=== PATIENT | male | born 1945 | race Two or more races ===

== ENCOUNTER 2024-07-28 11:14 | Outpatient (RCR) | payer MEDICARE, SELFPAY | END 2024-07-28 23:59 | disposition home or self-care (01) | LOC: RPT 11:14 | PROVIDERS: ATTENDING PHYSICIAN Student in an Organized Health Care Education/Training Program; FAMILY PHYSICIAN Family Medicine | DX: M54.16 Radiculopathy, lumbar region (principal); M48.062 Spinal stenosis, lumbar region with neurogenic claudication; Z73.6 Limitation of activities due to disability; R26.2 Difficulty in walking, not elsewhere classified; R26.89 Other abnormalities of gait and mobility | CPT/HCPCS: 97010; 97110; 97162 ==

== ENCOUNTER 2024-08-25 08:57 | Outpatient (RCR) | payer MEDICARE, SELFPAY | END 2024-08-25 23:59 | disposition home or self-care (01) | LOC: RPT 08:57 | PROVIDERS: ATTENDING PHYSICIAN Student in an Organized Health Care Education/Training Program; FAMILY PHYSICIAN Family Medicine | DX: M54.16 Radiculopathy, lumbar region (principal); M48.062 Spinal stenosis, lumbar region with neurogenic claudication; Z73.6 Limitation of activities due to disability; R26.2 Difficulty in walking, not elsewhere classified; R26.89 Other abnormalities of gait and mobility | CPT/HCPCS: 97010; 97110; 97112; 97116 ==

== ENCOUNTER → 2024-08-25 13:23 | Outpatient (REF) | payer MEDICARE, SELFPAY | LOC: RAD 13:23 | PROVIDERS: ATTENDING PHYSICIAN Surgery Vascular Surgery; FAMILY PHYSICIAN Family Medicine | DX: I73.9 Peripheral vascular disease, unspecified (principal) | CPT/HCPCS: 93970 ==

== ENCOUNTER 2024-10-06 09:10 | Outpatient (RCR) | payer MEDICARE, SELFPAY | END 2024-10-06 23:59 | disposition home or self-care (01) | LOC: RPT 09:10 | PROVIDERS: ATTENDING PHYSICIAN Student in an Organized Health Care Education/Training Program; FAMILY PHYSICIAN Family Medicine | DX: M54.16 Radiculopathy, lumbar region (principal); M48.062 Spinal stenosis, lumbar region with neurogenic claudication; Z73.6 Limitation of activities due to disability; R26.2 Difficulty in walking, not elsewhere classified; R26.89 Other abnormalities of gait and mobility | CPT/HCPCS: 97010; 97110 ==

== ENCOUNTER 2024-11-03 10:01 | Outpatient (RCR) | payer MEDICARE, SELFPAY | END 2024-11-03 23:59 | disposition home or self-care (01) | LOC: RPT 10:01 | PROVIDERS: ATTENDING PHYSICIAN Student in an Organized Health Care Education/Training Program; FAMILY PHYSICIAN Family Medicine | DX: M54.16 Radiculopathy, lumbar region (principal); M48.062 Spinal stenosis, lumbar region with neurogenic claudication; Z73.6 Limitation of activities due to disability; R26.2 Difficulty in walking, not elsewhere classified; R26.89 Other abnormalities of gait and mobility | CPT/HCPCS: 97110; 97112 ==

== ENCOUNTER 2024-11-16 06:09 | Day surgery (SDC) | payer MEDICARE, SELFPAY ==
[2024-11-10 09:53] VITALS: BMI 38.7
[2024-11-10 10:00] LABS: % Basophils 0.6 % (0-2); % Immature Granulocytes 0.6 % (0-0.5); % Lymphocytes 15.5 % (20.5-51.1); % Monocytes 14.1 % (1.7-9.3); % Neutrophils 65.2 % (42.2-75.2); Absolute Eosinophils 0.2 10^3/uL (0-0.7); Absolute Lymphocytes 0.8 10^3/uL (1.2-3.4); Absolute Monocytes 0.7 10^3/uL (0.1-0.6); Absolute Neutrophils 3.3 10^3/uL (1.4-6.5); Hematocrit 39.6 % (39.0-52.0); Hemoglobin 13.1 g/dL (13.0-18.0); Mean Corp Hgb Conc. 33.1 g/dL (33.0-37.0); Mean Corpuscular Hgb 32.1 pg (27.0-31.0); Mean Corpuscular Volume 97.1 fL (80.0-94.0); Mean Platelet Volume 9.7 fL (7.4-10.4); Nucleated Red Blood Cells % 0 % (-); Platelet Count 186 10^3/uL (130-400); Red Blood Cell Count 4.08 10^6/uL (4.70-6.10); Red Cell Dist. Width 12.5 % (11.5-14.5)
[2024-11-10 10:11] LABS: APTT 32.5 Sec (23.4-35.0); INR 1.05; PT 14.2 Sec (11.4-14.6)
[2024-11-10 10:46] LABS: Blood Urea Nitrogen 22 mg/dl (9-20); Calcium 9.4 mg/dl (8.4-10.2); Carbon Dioxide 30 mmol/L (22-30); Chloride 106 mmol/L (98-107); Estimated Creatinine Clearance 67 ml/min; Glucose 107 mg/dl (70-99); Potassium 4.8 mmol/L (3.5-5.1); Sodium 139 mmol/L (135-145); eGFR > 60.00
[2024-11-16] VITALS (13 sets, daily range): BP systolic 120–158; BP diastolic 53–76; BMI 33.7
[2024-11-16] MEDS: PERIDEX 0.12% ORAL RINSE 15 ML PO (07:00)
[2024-11-16] MEDS: BACTROBAN NASAL 1 GRAM NASAL (07:01)
[2024-11-16] MEDS: NSS 500 IV (07:22)
--- NOTE | 2024-11-16 07:34 | HP.FOC2 ---
Focused History & Physical
Chief Complaint
HPI:
Chief Complaint: Bilateral lower extremity edema with hyperpigmentation of bilateral shins
HPI / Indication for Planned Procedure: This is an 79-year-old male with significant past medical history of hypertension, lumbar stenosis, peripheral arterial disease, edema, aortic valve stenosis, high cholesterol, heart murmur, and venous
insufficiency who presents to [facility] for scheduled right lower extremity saphenous vein ablation for worsening lower extremity edema that has increased over the past 24 months. He denies recent hospitalization, trauma, or illness.
Denies nausea, vomiting, fever, chills, and cough.
Relevant Past Medical History: Hypertension and Other (Lumbar stenosis, lower extremity edema, venous insufficiency, aortic valve stenosis, heart murmur, high cholesterol)
Relevant Social History: Negative (Former tobacco smoker, quit greater than 10 years ago)
Review of Systems
Review of Pertinent Systems: All Systems Negative
Medication
See Medication form for detailed medications: Yes
Medication List (including Herbals & OTC):
[place] 3 1,000 mg PO DAILY 11/08/24
aspirin 81 mg tablet,delayed release 81 mg PO DAILY 11/08/24
atorvastatin 10 mg tablet 10 mg PO HS 11/08/24
coenzyme Q10 100 mg capsule (Co Q-10) 100 mg PO DAILY 11/08/24
collagen 1 dose PO DAILY 11/08/24
glucosamine-chondroitin 250 mg-200 mg tablet 2 tab PO BID 11/08/24
ketoconazole 2 % shampoo 1 applic topical ONCE dandruff 11/08/24
lorazepam 0.5 mg tablet 0.5 mg PO DAILY PRN anxiety 11/08/24
losartan 25 mg tablet (Cozaar) 25 mg PO DAILY 11/08/24
tadalafil 20 mg tablet (Cialis) 20 mg PO DAILY PRN ED 11/08/24
tamsulosin 0.4 mg capsule 0.4 mg PO HS 11/08/24
trazodone 100 mg tablet 100 mg PO HS 11/08/24
triamcinolone acetonide 0.1 % topical cream 1 applic topical DAILY rash on legs 11/08/24
turmeric root extract 500 mg tablet 2,000 mg PO DAILY 11/08/24
Medications Reviewed: Yes
Allergies and Reactions
Patient has Allergies: Yes
Noted Allergies and Reactions:
Allergy/AdvReac Type Severity Reaction Status Date / Time
MELINDA Inhibitors Allergy Unknown Verified 11/16/24 07:16
erythromycin base Allergy Throat Verified 11/08/24 14:01
closes
Penicillins Allergy Unknown Verified 11/08/24 14:01
Sulfa (Sulfonamide Allergy palpitation Verified 11/08/24 13:50
Antibiotics) s
Pertinent Physical Exam
All Other Systems: Negative
Head/Neck: Normal
Lungs: Normal (Bilateral lungs clear to auscultation)
Heart: Other (Regular rate and rhythm with murmur)
Abdomen: Normal (Nontender, nondistended)
Extremities: Other (Bilateral radial pulse +2, bilateral lower extremities with +1 edema, unable to palpate distal bilateral lower extremities but feet warm)
Neurological: Normal
Diagnosis / Assessment
Assessment: 79-year-old male with bilateral lower extremity venous insufficiency
Plan / Procedure
Plan: Will proceed with scheduled right lower extremity greater saphenous vein ablation with Dr. Cy Kearney III
Anesthesia/Sedation to be done by Anesthesia Provider: Yes
--- NOTE | 2024-11-16 07:40 | W.SUR.PREOP ---
Pre-Operative Surgical Note
-
I have examined this patient prior to the performance of the scheduled procedure.
The patient's condition is unchanged from the time of the current History and
Physical and the patient is able to undergo the scheduled procedure.
--- NOTE | 2024-11-16 09:00 | OR.RPT ---
Operative Report
Operative Report
Date of Operation: 11/16/2024
Pre Op Diagnosis: Symptomatic venous insufficiency, right lower extremity
Post Op Diagnosis: Symptomatic venous insufficiency, right lower extremity
Procedure: Radiofrequency endovenous ablation of right great saphenous vein (ankle puncture site)
Surgeon: Cy Kearney III, MD
Small Animal Veterinarian: Bill Linder MD, PGY5
Anesthesia: Sedation/local
Complications: None
Estimated Blood Loss: Minimal
History and Indications for Procedure: 79-year-old male with symptomatic venous insufficiency of the right lower extremity
Procedure in Detail: Truong Edwards was correctly identified and placed supine on the operating table. After adequate induction of anesthesia the right leg was frog-legged and the table placed into a reverse Trendelenburg position. The right leg
was prepped and draped in the usual sterile fashion. A timeout procedure was performed with the nursing and anesthesia staff confirming the patient's identity as well as the nature and laterality of the procedure.
The right great saphenous vein was identified using ultrasound guidance. The vein was visualized from the saphenofemoral junction to the ankle. An appropriate site for access was identified at the ankle, just below the area of skin discoloration
and lipodermatosclerosis. Local anesthesia was infiltrated into the proposed puncture site. The right great saphenous vein was accessed with a micropuncture needle under ultrasound guidance and the 7 [place] sheath was placed. The great saphenous
vein was somewhat tortuous and the catheter could not be advanced on its own easily. Therefore the catheter was removed. A V18 wire was then advanced through the sheath and under direct radiographic guidance navigated to the saphenofemoral
junction and into the common femoral vein. Then, over the 0.018 wire and under direct ultrasound guidance the 100 cm length /7 cm tip radiofrequency ablation catheter was advanced towards the saphenofemoral junction. Using a real-time direct
ultrasound measurement the tip of the catheter was positioned 2.7 cm from the saphenofemoral junction. The position of the catheter was then externally marked using the white plastic doughnut on the catheter at the sheath exit site. Using
ultrasound guidance Tumescent solution was then infiltrated circumferentially around the right great saphenous vein from the sheath insertion site to the tip of the catheter near the saphenofemoral junction. At this point the table was flattened
out. The right great saphenous vein was then ablated using 2 treatment cycles at each segment. Once completed the sheath and catheter were removed. Direct manual pressure was held on the puncture site and hemostasis was achieved. A sterile
dressing was applied.
The patient's leg was cleaned and then wrapped with an Alec wrap from the toes to the proximal thigh. The patient tolerated the procedure well was taken to the recovery room in good condition.
Attestation: I was present and responsible for the entire procedure
Signed:
Cy Kearney III, MD
Vascular Surgery
[facility]
[2024-11-16] MEDS: TORADOL 15 MG IV (09:28)
== END 2024-11-16 11:35 | disposition home or self-care (01) ==
LOC: CATH 06:09
PROVIDERS: ATTENDING PHYSICIAN Surgery Vascular Surgery; OTHER PHYSICIAN Internal Medicine Cardiovascular Disease; PRIMARYCARE PHYSICIAN Family Medicine
DX: I87.2 Venous insufficiency (chronic) (peripheral) (principal); R60.0 Localized edema; M48.061 Spinal stenosis, lumbar region without neurogenic claudication; Z79.82 Long term (current) use of aspirin; Z79.899 Other long term (current) drug therapy; E78.00 Pure hypercholesterolemia, unspecified; I10 Essential (primary) hypertension; I35.0 Nonrheumatic aortic (valve) stenosis; I45.10 Unspecified right bundle-branch block; Z01.810 Encounter for preprocedural cardiovascular examination; Z87.891 Personal history of nicotine dependence; Z88.0 Allergy status to penicillin; Z88.1 Allergy status to other antibiotic agents; Z88.2 Allergy status to sulfonamides
CPT/HCPCS: 36475; 36415; 80048; 85025; 85610; 85730; 87070; 93005; C1769

== ENCOUNTER → 2024-11-18 14:04 | Outpatient (REF) | payer MEDICARE, SELFPAY | LOC: RAD 14:04 | PROVIDERS: ATTENDING PHYSICIAN Surgery Vascular Surgery; FAMILY PHYSICIAN Family Medicine | DX: I87.2 Venous insufficiency (chronic) (peripheral) (principal) | CPT/HCPCS: 93971 ==

== ENCOUNTER 2024-12-01 08:05 | Outpatient (RCR) | payer MEDICARE, SELFPAY | END 2024-12-01 23:59 | disposition home or self-care (01) | LOC: RPT 08:05 | PROVIDERS: ATTENDING PHYSICIAN Student in an Organized Health Care Education/Training Program; FAMILY PHYSICIAN Family Medicine | DX: M54.16 Radiculopathy, lumbar region (principal); M48.062 Spinal stenosis, lumbar region with neurogenic claudication; Z73.6 Limitation of activities due to disability; Z98.890 Other specified postprocedural states; R26.2 Difficulty in walking, not elsewhere classified; R26.89 Other abnormalities of gait and mobility | CPT/HCPCS: 97010; 97110 ==

== ENCOUNTER 2025-06-07 06:13 | Day surgery (SDC) | payer MEDICARE, SELFPAY ==
[2025-06-07] VITALS (7 sets, daily range): BP systolic 109–126; BP diastolic 58–86; BMI 37.9
[2025-06-07] MEDS: NSS 500 IV (06:57)
[2025-06-07] MEDS: BACTROBAN NASAL 1 GRAM NASAL (06:57)
[2025-06-07 07:07] LABS: Hematocrit 41.0 % (39.0-52.0); Hemoglobin 13.7 g/dL (13.0-18.0); Mean Corp Hgb Conc. 33.4 g/dL (33.0-37.0); Mean Corpuscular Volume 97.4 fL (80.0-94.0); Platelet Count 172 10^3/uL (130-400); Red Cell Dist. Width 13.2 % (11.5-14.5)
[2025-06-07 07:20] LABS: Blood Urea Nitrogen 24 mg/dl (9-20); Calcium 9.2 mg/dl (8.4-10.2); Carbon Dioxide 26 mmol/L (22-30); Chloride 107 mmol/L (98-107); Estimated Creatinine Clearance 58 ml/min; Glucose 101 mg/dl (70-99); Potassium 4.6 mmol/L (3.5-5.1); Sodium 137 mmol/L (135-145); eGFR 55.53
--- NOTE | 2025-06-07 07:20 | HP.FOC2 ---
Focused History & Physical
Chief Complaint
HPI:
Chief Complaint: Venous insufficiency
HPI / Indication for Planned Procedure: 79-year-old male with past medical history significant for hypertension, lumbar stenosis, PAD, edema, aortic valve stenosis, high cholesterol, facial reconstruction/basal cell, Endo ablation right greater
saphenous vein presenting today at [facility] for Endo ablation of left greater saphenous vein with Dr. Kearney. Patient denies recent illness or trauma. Patient denies new medications since last office visit.
Relevant Past Medical History: Other (See above)
Relevant Social History: Tobacco Use (Quit in 1984)
Relevant Family History: Positive for (Diabetes, Parkinson's)
Relevant Past Surgical History: Positive for (Endoablation right greater saphenous vein)
Review of Systems
Review of Pertinent Systems: All Systems Negative
Medication
See Medication form for detailed medications: Yes
Medication List (including Herbals & OTC):
[place] 3 1,000 mg PO DAILY 11/08/24
aspirin 81 mg tablet,delayed release 81 mg PO DAILY 11/08/24
atorvastatin 10 mg tablet 10 mg PO HS 11/08/24
coenzyme Q10 100 mg capsule (Co Q-10) 100 mg PO DAILY 11/08/24
glucosamine-chondroitin 250 mg-200 mg tablet 1 tab PO BID 11/08/24
ketoconazole 2 % shampoo 1 applic topical ONCE PRN dandruff 11/08/24
losartan 25 mg tablet (Cozaar) 25 mg PO HS 11/08/24
tadalafil 20 mg tablet (Cialis) 20 mg PO DAILY PRN ED 11/08/24
tamsulosin 0.4 mg capsule 0.4 mg PO HS 11/08/24
trazodone 100 mg tablet 100 mg PO HS 11/08/24
triamcinolone acetonide 0.1 % topical cream 1 applic topical DAILY rash on legs 11/08/24
turmeric root extract 500 mg tablet 2,000 mg PO DAILY 11/08/24
Medications Reviewed: Yes
Allergies and Reactions
Patient has Allergies: Yes
Noted Allergies and Reactions:
Allergy/AdvReac Type Severity Reaction Status Date / Time
MELINDA Inhibitors Allergy Unknown Verified 11/16/24 07:16
erythromycin base Allergy Throat Verified 06/06/25 12:29
closes
Penicillins Allergy Anaphylaxis Verified 06/06/25 12:29
Sulfa (Sulfonamide Allergy Unknown Verified 06/06/25 12:55
Antibiotics)
Pertinent Physical Exam
All Other Systems: Negative
Head/Neck: Normal
Lungs: Normal
Heart: Normal
Abdomen: Normal
Extremities: Normal
Neurological: Normal
Diagnosis / Assessment
Venous insufficiency
Plan / Procedure
Endoablation left greater saphenous vein today with Dr. Kearney
Anesthesia/Sedation to be done by Anesthesia Provider: Yes
[2025-06-07 07:21] LABS: INR 1.08; PT 14.1 Sec (11.4-14.6)
[2025-06-07 07:22] LABS: APTT 30.6 Sec (23.4-35.0)
--- NOTE | 2025-06-07 09:11 | OR.RPT ---
Operative Report
Operative Report
Date of Operation: 06/07/2025
Pre Op Diagnosis: Symptomatic left lower extremity venous insufficiency
Post Op Diagnosis: Symptomatic left lower extremity venous insufficiency
Procedure: Radiofrequency endovenous ablation of left great saphenous vein (left ankle puncture site)
Surgeon: Cy Kearney III, MD
Shovel Mechanic: Megan Hidalgo MD PGY-6
Anesthesia: LMA/local
Complications: None
Estimated Blood Loss: Minimal
History and Indications for Procedure: 79-year-old male with symptomatic venous insufficiency involving the left lower extremity. He had previously had a right lower extremity great saphenous vein ablation for similar symptoms in that extremity and
returned to have an endovenous ablation of the left great saphenous vein.
Procedure in Detail: Truong Edwards was correctly identified and placed supine on the operating table. After adequate induction of anesthesia the left leg was frog-legged and the table placed into a reverse Trendelenburg position. The left leg
was prepped and draped in the usual sterile fashion. A time out procedure was performed with the nursing and anesthesia staff confirming the patient's identity as well as the nature and laterality of the procedure.
The left great saphenous vein was identified using ultrasound guidance. The vein was visualized from the ankle to the saphenofemoral junction. An appropriate site for access was identified at the ankle, just proximal to the medial malleolus.
Local anesthesia was infiltrated into the proposed puncture site. The left great saphenous vein was accessed with a micropuncture needle under ultrasound guidance and the 7 [place] sheath was placed. Under direct ultrasound guidance the 100 cm
length /7 cm tip radiofrequency ablation catheter was advanced towards the saphenofemoral junction. Using a real-time direct ultrasound measurement the tip of the catheter was positioned 2.6 cm from the saphenofemoral junction. The position of the
catheter was then externally marked using the white plastic doughnut on the catheter at the sheath exit site. Using ultrasound guidance Tumescent solution was then infiltrated circumferentially around the left great saphenous vein from the sheath
insertion site to the tip of the catheter near the saphenofemoral junction. At this point the table was flattened out. The left great saphenous vein was then ablated using 2 treatment cycles at each segment. Once completed the sheath and catheter
were removed. Direct manual pressure was held on the puncture site and hemostasis was achieved. A sterile dressing was applied.
The patient's leg was cleaned and then wrapped with an Alec wrap from the toes to the proximal thigh. The patient tolerated the procedure well was taken to the recovery room in good condition.
Attestation: I was present and responsible for the entire procedure
Signed:
Cy Kearney III, MD
Vascular Surgery
[facility]
== END 2025-06-07 10:40 | disposition home or self-care (01) ==
LOC: CATH 06:13
PROVIDERS: ATTENDING PHYSICIAN Surgery Vascular Surgery; OTHER PHYSICIAN Internal Medicine Cardiovascular Disease; PRIMARYCARE PHYSICIAN Family Medicine
DX: I87.2 Venous insufficiency (chronic) (peripheral) (principal); Z87.891 Personal history of nicotine dependence; Z83.3 Family history of diabetes mellitus; Z82.0 Family history of epilepsy and other diseases of the nervous system; I45.10 Unspecified right bundle-branch block; I49.1 Atrial premature depolarization; Z88.0 Allergy status to penicillin; Z88.1 Allergy status to other antibiotic agents; Z88.2 Allergy status to sulfonamides
CPT/HCPCS: 36475; 80048; 85027; 85610; 85730; 93005